=== PATIENT | female | born 2000 | race Caucasian/White ===

== ENCOUNTER 2024-03-02 10:38 | Emergency (ER) | payer SELFPAY ==
[~2024-03-02] VITALS: Ht 162.6 cm; Wt 68.0 kg
[2024-03-02 11:06] LABS: CLARITY URINE CLOUDY (CLEAR); COLOR URINE YELLOW (YELLOW); GLUCOSE URINE NEGATIVE (NEGATIVE); KETONES URINE TRACE (NEGATIVE); LEUKOCYTE ESTERASE URINE 1+ (NEGATIVE); NITRITE URINE NEGATIVE (NEGATIVE); OCCULT BLOOD URINE NEGATIVE (NEGATIVE); PH URINE 5.5 (4.5-8.0); PROTEIN URINE NEGATIVE (NEGATIVE); SPECIFIC GRAVITY URINE 1.026 (1.005-1.030)
[2024-03-02 11:15] LABS: BASOPHILS % 0.5 % (0.0-2.0); EOSINOPHILS % 1.2 % (0.0-5.0); HEMATOCRIT. 33.9 % (36.0-48.0); HEMOGLOBIN. 11.5 g/dL (12.0-16.0); LYMPHOCYTES % 18.1 % (20.0-50.0); MEAN CORPUSCULAR HEMOGLOBIN 32.2 pg (28.0-32.0); MEAN CORPUSCULAR VOLUME 94.7 fL (81.0-99.0); MEAN PLATELET VOLUME 8.8 fl (7.4-10.4); NEUTROPHILS % 72.2 % (40.0-76.0); PLATELET 252 x1000/uL (130-400); RED BLOOD CELL COUNT 3.58 mill/uL (4.2-5.4)
[2024-03-02] MEDS: METOCLOPRAMIDE HCL 10MG TABLET PO ONE (11:30)
[2024-03-02] MEDS: ACETAMINOPHEN 325MG TABLET PO ONE (11:30)
[2024-03-02 11:31] LABS: CHLORIDE 107 mEq/L (98-107); POTASSIUM 3.6 mEq/L (3.5-5.1); SODIUM 137 mEq/L (136-145)
[2024-03-02 11:32] LABS: CARBON DIOXIDE 21 mEq/L (21-32)
[2024-03-02 11:33] LABS: CALCIUM 8.7 mg/dL (8.7-10.4)
[2024-03-02 11:37] LABS: CREATININE 0.5 mg/dL (0.6-1.0); GLUCOSE 94 mg/dL (70-105)
[2024-03-02 11:38] LABS: UREA NITROGEN BLOOD 9 mg/dL (9-23)
[2024-03-02 11:39] LABS: ALANINE AMINOTRANSFERASE 21 IU/L (10-49); ALBUMIN 3.7 g/dL (3.2-4.8); ASPARTATE AMINOTRANSFERASE 21 IU/L (<34)
[2024-03-02 11:40] LABS: BILIRUBIN TOTAL 0.3 mg/dL (0.1-1.0); PROTEIN TOTAL 6.1 g/dL (6.0-8.3)
[2024-03-02 11:51] LABS: SQUAMOUS EPITHELIAL CELL URINE 3+ /lpf (RARE/1+)
[2024-03-02 12:05] LABS: RBC URINE 0-2 /hpf (0-2)
[2024-03-02 12:06] LABS: BACTERIA URINE 3+
[2024-03-02 12:34] VITALS: BP 100/60; PULSE 88; RESP 16; TEMP 98.1
[2024-03-02 12:45] LABS: B-HCG QUANTITATIVE 11195 mIU/mL (<3)
== END 2024-03-02 12:59 | disposition short-term general hospital (02) ==
LOC: ER 10:38 → EDBD 10:38 → ER 12:59
DX: O26.893 Other specified pregnancy related conditions, third trimester (principal); R10.13 Epigastric pain; Z3A.28 28 weeks gestation of pregnancy
CPT/HCPCS: 80053; 81003; 84702; 83690; 85025; 87086; 36415; 76705; 76815; 99291; J8597; Z7610